=== PATIENT | female | born 1965 | race Caucasian/White ===

== ENCOUNTER 2021-04-28 10:29 | Emergency (ER) | payer OTHER ==
[~2021-04-28] VITALS: Ht 152.4 cm; Wt 91.2 kg
[2021-04-28] MEDS ORDERED: CHILDREN'S ASPI81 MG (10:50)
[2021-04-28] MEDS ORDERED: ZOLOFT50 MG PO (10:50)
== END 2021-04-28 14:34 | disposition home or self-care (01) ==
LOC: ER 10:29
DX: S90.02XA Contusion of left ankle, initial encounter (principal); S90.32XA Contusion of left foot, initial encounter; W01.0XXA Fall on same level from slipping, tripping and stumbling without subsequent striking against object, initial encounter; Y92.89 Other specified places as the place of occurrence of the external cause